=== PATIENT | female | born 1955 | race Caucasian/White ===

== ENCOUNTER 2016-12-23 11:11 | Outpatient (CLI) | payer MEDICARE, BC ==
--- NOTE | 2016-12-23 20:46 | Diagnostic Imaging Report ---
~ [facility] [id number] [facility] [address] [place], [place]. [address] ~ ~ ~ ~ Report Submission Date: Dec 23, 2016 1:53:53 PM CDT Patient ~ Study Name: KEYONA GOLDMAN ~ Date: Dec 23, 2016 11:33:39 AM CDT ~ Modality Type: CR Gender: F ~ Description: ABDOMEN : 53 ~ Institution: [facility] Physician DEEPIKA GRECO (SURFACE GRINDER TENDER) - OP ~ ~ ~ EXAMINATION: ~ Abdomen AP view. ~ HISTORY: ~ Abdominal pain. ~ FINDINGS: ~ The bowel gas pattern is normal without evidence of obstruction. ~Posterior spinal fusion is seen in the lower lumbar spine. ~The lung bases are clear. ~ IMPRESSION: ~ Normal bowel gas pattern. ~ Electronically signed on Dec 23, 2016 1:53:53 PM CDT by: Mnocho LICONA
== END 2016-12-23 11:30 ==
LOC: RAD 11:11
PROVIDERS: ATTEND Nurse Practitioner Family
DX: K59.00 Constipation, unspecified (principal)
CPT/HCPCS: 74020

== ENCOUNTER 2018-03-23 08:25 | Outpatient (CLI) | payer MEDICARE, BC ==
[2018-03-23 18:31] LABS: T3 TOTAL 95.1 ng/dL (80.0-200.0)
== END 2018-03-23 08:26 ==
LOC: LAB 08:25
PROVIDERS: ATTEND Nurse Practitioner Family
DX: E03.4 Atrophy of thyroid (acquired) (principal)
CPT/HCPCS: 36415; 84439; 84443; 84480